=== PATIENT | female | born 1945 | race Caucasian/White ===

== ENCOUNTER 2016-12-28 11:24 | Day surgery (SDC) | payer MEDICARE, MEDICAID ==
[~2016-12-28] VITALS: Ht 165.1 cm; Wt 68.0 kg
[~2016-12-28 11:24] MED LIST: CLOPIDOGREL PO; GLIPERIDE PO; LOSA100T6 PO; OXYC-302 PO
[2016-12-28] MEDS ORDERED: SUPPLEMENTS (12:14)
[2016-12-28] MEDS ORDERED: OXYC-229 PO (12:14)
[2016-12-28] MEDS ORDERED: LOSA50TA6 PO (12:14)
[2016-12-28] MEDS ORDERED: DULO60CA7 PO (12:14)
[2016-12-28] MEDS ORDERED: GLIP5TAB10 PO (12:14)
[2016-12-28] MEDS ORDERED: CLOPIDOGREL (12:14)
[2016-12-28 12:15] VITALS: BP 153/77
[2016-12-28] MEDS ORDERED: SODIUM CHLORIDE 0.9% 1,000 ML IV SCH (12:20)
[2016-12-28 12:51] LABS: HEMOGLOBIN 12.4 g/dL (11.7-16.4)
[2016-12-28 13:00] LABS: BLOOD UREA NITROGEN 43 mg/dL (7-18)
[2016-12-28] MEDS ORDERED: LIDOCAINE 2%, 20ML ONE (13:11)
[2016-12-28] MEDS ORDERED: FLUMAZENIL 0.1 MG/1 ML, 5ML ONE (13:12)
[2016-12-28] MEDS ORDERED: FENTANYL PF 100 MCG/2ML ONE (13:12)
[2016-12-28] MEDS ORDERED: MIDAZOLAM 1 MG/ML, 5ML ONE (13:12)
[2016-12-28] MEDS ORDERED: NALOXONE 1 MG/ML, 2ML ONE (13:12)
[2016-12-28] MEDS ORDERED: HEPARIN 1,000 UNITS/ML, 10ML ONE (13:12)
== END 2016-12-28 15:15 | disposition home or self-care (01) ==
LOC: OUT 11:24
PROVIDERS: ATTEND Surgery Vascular Surgery
DX: T82.898A Other specified complication of vascular prosthetic devices, implants and grafts, initial encounter (principal); E11.22 Type 2 diabetes mellitus with diabetic chronic kidney disease; I12.0 Hypertensive chronic kidney disease with stage 5 chronic kidney disease or end stage renal disease; N18.6 End stage renal disease; Z99.2 Dependence on renal dialysis; F17.210 Nicotine dependence, cigarettes, uncomplicated; E78.5 Hyperlipidemia, unspecified; Z90.710 Acquired absence of both cervix and uterus; Z82.3 Family history of stroke; Z83.3 Family history of diabetes mellitus; Y83.2 Surgical operation with anastomosis, bypass or graft as the cause of abnormal reaction of the patient, or of later complication, without mention of misadventure at the time of the procedure
CPT/HCPCS: 36415; 36901; 80048; 82962; 85025; C1751; C1769; C1894; J2250; J3010; J3490; J7030; 99156; 99157; J1644; J2310

== ENCOUNTER 2020-01-22 22:11 | Inpatient (IN) | payer MEDICARE, MEDICAID ==
[~2020-01-22] VITALS: Ht 165.1 cm; Wt 64.9 kg
[~2020-01-22 22:11] MED LIST changes: +CLOPIDOGREL; +DULO60CA7 PO; +GLIP5TAB10 PO; +LOSA100T14 PO; -LOSA100T6 PO; +LOSA50TA14 PO; +OXYC-307 PO; +SUPPLEMENTS
[2020-01-22 23:01] LABS: ALBUMIN 2.9 g/dL (3.4-5.0); ANION GAP 18 mmol/L (5-15); CALCIUM 9.6 mg/dL (8.5-10.1); CHLORIDE 102 mmol/L (98-107)
--- NOTE | 2020-01-22 23:11 | NUR ---
Patient BIB [facility] from [facility]. Patient was seen for weakness and failure to thrive. Patient receives dialysis but has not been in a week. Patient was afraid to go out of the house due to COVID. Patient had multiple abnormal lab values and was sent here for further advanced care.
[2020-01-22] MEDS ORDERED: FUROSEMIDE 40 MG/4 ML IV ONE (23:30)
[2020-01-22] MEDS ORDERED: DEXTROSE 10%, 1,000ML IV ONE (23:30)
[2020-01-22] MEDS ORDERED: DEXTROSE 10% 1,000 ML IV SCH ×3 (23:30→23:45)
[2020-01-22] MEDS ORDERED: FUROSEMIDE 40 MG/4 ML ONE (23:50)
[2020-01-23] VITALS (7 sets, daily range): BP systolic 92–162; BP diastolic 43–87
[2020-01-23] MEDS ORDERED: ASPI-496 PO (00:17)
[2020-01-23] MEDS ORDERED: BUSP5TAB2 PO (00:17)
[2020-01-23] MEDS ORDERED: ATOR10TA9 PO (00:17)
[2020-01-23] MEDS ORDERED: GLIM1TAB7 PO (00:17)
[2020-01-23] MEDS ORDERED: CLON0.1T22 PO (00:17)
[2020-01-23] MEDS ORDERED: FURO20TA3 PO (00:17)
[2020-01-23] MEDS ORDERED: AMLO2.5T5 PO (00:17)
[2020-01-23] MEDS ORDERED: METO25TA35 PO (00:17)
[2020-01-23] MEDS ORDERED: CLOP75TA PO (00:17)
--- NOTE | 2020-01-23 00:20 | NUR ---
Report given to DAWNA Agosto. Patient to be transferred to room 406.
[2020-01-23] MEDS ORDERED: POLYETHYLENE GLYCOL 17 GM PACKET PO PRN (00:30)
[2020-01-23] MEDS: DEXTROSE 10% 1,000 ML IV SCH ×2 (00:30→17:25)
[2020-01-23] MEDS ORDERED: BISACODYL 10 MG SUPP PR PRN (00:30)
[2020-01-23 00:54] LABS: TROPONIN I 0.029 ng/mL (0.000-0.045)
[2020-01-23] MEDS: HEPARIN 5,000 UNITS/ML, 1ML SQ SCH ×3 (01:20→16:37)
[2020-01-23] MEDS: SODIUM CHLORIDE FLUSH 10ML SYR IVF SCH ×4 (01:26→20:56)
[2020-01-23] MEDS ORDERED: DEXTROSE 50%, 50ML SYRINGE IVPush PRN (01:30)
[2020-01-23] MEDS ORDERED: GLUCAGON 1 MG IM PRN (01:30)
[2020-01-23] MEDS ORDERED: DEXTROSE 4 GM TAB.CHEW PO PRN (01:30)
[2020-01-23] MEDS ORDERED: ACETAMINOPHEN 325 MG TABLET ONE (03:21)
[2020-01-23] MEDS: ACETAMINOPHEN 325 MG TABLET PO PRN ×3 (03:24→20:56)
[2020-01-23 06:36] LABS: TROPONIN I 0.026 ng/mL (0.000-0.045)
[2020-01-23] MEDS: ASPIRIN 81 MG TABLET EC PO SCH (08:02)
[2020-01-23] MEDS: BUSPIRONE 5 MG TABLET PO SCH ×2 (08:03→20:56)
[2020-01-23] MEDS: CLOPIDOGREL 75 MG TABLET PO SCH (08:03)
[2020-01-23] MEDS: SENNA/DOCUSATE TABLET PO SCH (08:03)
[2020-01-23] MEDS: AMLODIPINE 2.5 MG TABLET PO SCH (09:00)
[2020-01-23] MEDS: LOSARTAN 50MG TABLET PO SCH (09:00)
[2020-01-23 09:10] LABS: ANION GAP 18 mmol/L (5-15); CHLORIDE 101 mmol/L (98-107)
[2020-01-23 09:11] LABS: MEAN CORPUSCULAR HEMOGLOBIN 29.1 pg (27.0-34.8); MEAN CORPUSCULAR HGB CONC 32.1 g/dL (32.4-35.8); MEAN CORPUSCULAR VOLUME 90.7 fL (80-100); MEAN PLATELET VOLUME 7.9 fL (7.4-10.4); PLATELET COUNT 342 x10^3/uL (130-400); RED CELL DISTRIBUTION WIDTH 17.4 % (9.6-15.2)
[2020-01-23 09:38] LABS: BASOPHILS # (AUTO) 0.05 x10^3/uL (0-0.1); BASOPHILS % (AUTO) 1 % (0-1); EOSINOPHILS % (AUTO) 4 % (1-7); LYMPHOCYTES # (AUTO) 0.94 x10^3/uL (1-3.4); LYMPHOCYTES % (AUTO) 12 % (22-44); MD SCAN; MONOCYTES # (AUTO) 0.34 x10^3/uL (0.2-0.8); MONOCYTES % (AUTO) 5 % (2-9); NEUTROPHILS # (AUTO) 5.99 x10^3/uL (1.8-6.8); NEUTROPHILS % (AUTO) 79 % (42-75)
[2020-01-23] MEDS: NICOTINE 21 MG/24 HR PATCH.TD24 TD SCH (10:35)
[2020-01-23] MEDS: ONDANSETRON 2MG/ML, 2ML IVPush PRN (11:08)
[2020-01-23] MEDS ORDERED: DARBEPOETIN 100 MCG/ML SQ SCH (12:00)
[2020-01-23 12:55] LABS: ABSOLUTE RETICS # 0.029 x10^6/uL (0.5-2.5); RETICULOCYTE COUNT % 1.32 % (0.5-1.5)
[2020-01-23 13:00] LABS: RED BLOOD COUNT 2.16 x10^6/uL (3.82-5.3)
[2020-01-23 13:04] LABS: % IRON SATURATION 36 % (20-55); IRON LEVEL 44 mcg/dL (50-170); TOTAL IRON BINDING CAPACITY 121 mcg/dL (250-450)
[2020-01-23 13:08] LABS: TROPONIN I 0.038 ng/mL (0.000-0.045)
[2020-01-23] MEDS ORDERED: MORPHINE SULFATE 4 MG/ML, 1ML ONE (16:54)
[2020-01-23] MEDS ORDERED: morphine SULFATE 10 MG/ML, 1ML IVPush ONE (17:00)
[2020-01-23] MEDS ORDERED: MORPHINE SULFATE 4 MG/ML, 1ML IVPush ONE (17:00)
[2020-01-23 18:33] LABS: TROPONIN I 0.052 ng/mL (0.000-0.045)
[2020-01-23] MEDS: ATORVASTATIN 40 MG TABLET PO SCH (20:56)
[2020-01-24] MEDS: HEPARIN 5,000 UNITS/ML, 1ML SQ SCH ×4 (00:13→19:30)
[2020-01-24 00:56] VITALS: BP 103/67
[2020-01-24] MEDS: ONDANSETRON 2MG/ML, 2ML IVPush PRN (03:05)
[2020-01-24 05:45] LABS: ALBUMIN 2.6 g/dL (3.4-5.0); ANION GAP 11 mmol/L (5-15); CALCIUM 8.5 mg/dL (8.5-10.1); CHLORIDE 94 mmol/L (98-107); CREATININE 6.06 mg/dL (0.55-1.02)
[2020-01-24 05:53] LABS: MEAN CORPUSCULAR HEMOGLOBIN 29.8 pg (27.0-34.8); MEAN CORPUSCULAR HGB CONC 33.3 g/dL (32.4-35.8); MEAN CORPUSCULAR VOLUME 89.6 fL (80-100); MEAN PLATELET VOLUME 7.6 fL (7.4-10.4); PLATELET COUNT 300 x10^3/uL (130-400); RED BLOOD COUNT 2.45 x10^6/uL (3.82-5.3)
[2020-01-24 06:43] LABS: BASOPHILS # (AUTO) 0.02 x10^3/uL (0-0.1); BASOPHILS % (AUTO) 0 % (0-1); EOSINOPHILS # (AUTO) 0.09 x10^3/uL (0-0.4); EOSINOPHILS % (AUTO) 2 % (1-7); LYMPHOCYTES # (AUTO) 0.55 x10^3/uL (1-3.4); LYMPHOCYTES % (AUTO) 10 % (22-44); MD SCAN; MONOCYTES # (AUTO) 0.45 x10^3/uL (0.2-0.8); MONOCYTES % (AUTO) 8 % (2-9); NEUTROPHILS # (AUTO) 4.57 x10^3/uL (1.8-6.8); NEUTROPHILS % (AUTO) 80 % (42-75)
[2020-01-24 07:32] VITALS: BP 112/69
[2020-01-24] MEDS: CLOPIDOGREL 75 MG TABLET PO SCH (09:00)
[2020-01-24] MEDS: SENNA/DOCUSATE TABLET PO SCH (09:00)
[2020-01-24] MEDS: AMLODIPINE 2.5 MG TABLET PO SCH (09:00)
[2020-01-24] MEDS ORDERED: FUROSEMIDE 40 MG/4 ML IV ONE (09:00)
[2020-01-24] MEDS: SODIUM CHLORIDE FLUSH 10ML SYR IVF SCH ×4 (09:00→20:44)
[2020-01-24] MEDS: ASPIRIN 81 MG TABLET EC PO SCH (09:00)
[2020-01-24] MEDS: LOSARTAN 50MG TABLET PO SCH (09:00)
[2020-01-24] MEDS ORDERED: REGADENOSON 0.4 MG/5 ML SYRINGE ONE (09:50)
[2020-01-24] MEDS: NICOTINE 21 MG/24 HR PATCH.TD24 TD SCH (12:01)
[2020-01-24] MEDS: IRON SUCROSE COMPLEX 100MG/5ML IV SCH (12:01)
[2020-01-24] MEDS: BUSPIRONE 5 MG TABLET PO SCH ×2 (12:01→20:44)
[2020-01-24 13:36] VITALS: BP 114/66
[2020-01-24 19:48] VITALS: BP 107/65
[2020-01-24] MEDS: INSULIN LISPRO 100 UNITS/ML, PEN SQ-INSULIN SCH (20:38)
[2020-01-24] MEDS: ATORVASTATIN 40 MG TABLET PO SCH (20:44)
[2020-01-24] MEDS: DIPHENHYDRAMINE 25 MG CAPSULE PO PRN (23:37)
[2020-01-24] MEDS: ACETAMINOPHEN 325 MG TABLET PO PRN (23:37)
[2020-01-25 00:46] VITALS: BP 101/62
[2020-01-25 05:39] LABS: MEAN CORPUSCULAR HEMOGLOBIN 29.6 pg (27.0-34.8); MEAN CORPUSCULAR HGB CONC 32.7 g/dL (32.4-35.8); MEAN CORPUSCULAR VOLUME 90.5 fL (80-100); MEAN PLATELET VOLUME 7.6 fL (7.4-10.4); PLATELET COUNT 310 x10^3/uL (130-400); RED BLOOD COUNT 2.49 x10^6/uL (3.82-5.3); RED CELL DISTRIBUTION WIDTH 17.5 % (9.6-15.2)
[2020-01-25 05:51] LABS: ALBUMIN 2.8 g/dL (3.4-5.0); ANION GAP 9 mmol/L (5-15); CALCIUM 8.8 mg/dL (8.5-10.1); CHLORIDE 94 mmol/L (98-107)
[2020-01-25 05:57] LABS: BASOPHILS # (AUTO) 0.02 x10^3/uL (0-0.1); BASOPHILS % (AUTO) 0 % (0-1); EOSINOPHILS # (AUTO) 0.17 x10^3/uL (0-0.4); EOSINOPHILS % (AUTO) 3 % (1-7); LYMPHOCYTES # (AUTO) 1.19 x10^3/uL (1-3.4); LYMPHOCYTES % (AUTO) 19 % (22-44); MD SCAN; MONOCYTES # (AUTO) 0.55 x10^3/uL (0.2-0.8); MONOCYTES % (AUTO) 9 % (2-9); NEUTROPHILS # (AUTO) 4.18 x10^3/uL (1.8-6.8); NEUTROPHILS % (AUTO) 68 % (42-75)
[2020-01-25] MEDS: INSULIN LISPRO 100 UNITS/ML, PEN SQ-INSULIN SCH ×4 (07:00→21:00)
[2020-01-25] MEDS: CLOPIDOGREL 75 MG TABLET PO SCH (07:02)
[2020-01-25] MEDS: HEPARIN 5,000 UNITS/ML, 1ML SQ SCH ×2 (07:02→16:50)
[2020-01-25] MEDS: ASPIRIN 81 MG TABLET EC PO SCH (07:02)
[2020-01-25 07:26] VITALS: BP 108/64
[2020-01-25] MEDS: SODIUM CHLORIDE FLUSH 10ML SYR IVF SCH ×3 (07:34→20:59)
[2020-01-25] MEDS: BUSPIRONE 5 MG TABLET PO SCH ×2 (08:33→20:59)
[2020-01-25] MEDS: CALCITRIOL 0.25 MCG CAPSULE PO SCH (08:33)
[2020-01-25] MEDS: LOSARTAN 50MG TABLET PO SCH (08:33)
[2020-01-25] MEDS: SENNA/DOCUSATE TABLET PO SCH (08:33)
[2020-01-25] MEDS: NICOTINE 21 MG/24 HR PATCH.TD24 TD SCH (09:19)
[2020-01-25] MEDS: IRON SUCROSE COMPLEX 100MG/5ML IV SCH (13:16)
[2020-01-25 14:03] LABS: OCCULT BLOOD POSITIVE (NEGATIVE)
[2020-01-25 14:05] VITALS: BP 118/66
[2020-01-25 19:43] VITALS: BP 111/68
[2020-01-25] MEDS: ATORVASTATIN 40 MG TABLET PO SCH (20:59)
[2020-01-25] MEDS: DIPHENHYDRAMINE 25 MG CAPSULE PO PRN (20:59)
[2020-01-26 00:08] VITALS: BP 123/67
[2020-01-26] MEDS: HEPARIN 5,000 UNITS/ML, 1ML SQ SCH ×3 (00:45→17:12)
[2020-01-26 05:49] LABS: BASOPHILS # (AUTO) 0.02 x10^3/uL (0-0.1); BASOPHILS % (AUTO) 0 % (0-1); EOSINOPHILS # (AUTO) 0.21 x10^3/uL (0-0.4); EOSINOPHILS % (AUTO) 3 % (1-7); LYMPHOCYTES # (AUTO) 1.19 x10^3/uL (1-3.4); LYMPHOCYTES % (AUTO) 19 % (22-44); MD NO; MEAN CORPUSCULAR HEMOGLOBIN 29.8 pg (27.0-34.8); MEAN CORPUSCULAR HGB CONC 32.8 g/dL (32.4-35.8); MEAN CORPUSCULAR VOLUME 90.9 fL (80-100); MEAN PLATELET VOLUME 7.6 fL (7.4-10.4); MONOCYTES # (AUTO) 0.52 x10^3/uL (0.2-0.8); MONOCYTES % (AUTO) 8 % (2-9); NEUTROPHILS # (AUTO) 4.42 x10^3/uL (1.8-6.8); NEUTROPHILS % (AUTO) 70 % (42-75); PLATELET COUNT 319 x10^3/uL (130-400); RED BLOOD COUNT 2.56 x10^6/uL (3.82-5.3); RED CELL DISTRIBUTION WIDTH 17.5 % (9.6-15.2)
[2020-01-26 05:55] LABS: ALBUMIN 2.8 g/dL (3.4-5.0); ANION GAP 8 mmol/L (5-15); CALCIUM 9.2 mg/dL (8.5-10.1); CHLORIDE 102 mmol/L (98-107); CREATININE 3.51 mg/dL (0.55-1.02)
[2020-01-26 07:30] VITALS: BP 122/67
[2020-01-26] MEDS: PANTOPRAZOLE 40 MG IV IVPush SCH (07:41)
[2020-01-26] MEDS: SENNA/DOCUSATE TABLET PO SCH (07:41)
[2020-01-26] MEDS: INSULIN LISPRO 100 UNITS/ML, PEN SQ-INSULIN SCH ×4 (07:41→21:05)
[2020-01-26] MEDS: CALCITRIOL 0.25 MCG CAPSULE PO SCH (07:41)
[2020-01-26] MEDS: BUSPIRONE 5 MG TABLET PO SCH ×2 (07:41→21:03)
[2020-01-26] MEDS: CLOPIDOGREL 75 MG TABLET PO SCH (07:42)
[2020-01-26] MEDS: LOSARTAN 50MG TABLET PO SCH (07:42)
[2020-01-26] MEDS: SODIUM CHLORIDE FLUSH 10ML SYR IVF SCH ×2 (07:42→21:03)
[2020-01-26] MEDS: ASPIRIN 81 MG TABLET EC PO SCH (07:42)
[2020-01-26] MEDS: NICOTINE 21 MG/24 HR PATCH.TD24 TD SCH (09:36)
[2020-01-26 12:28] VITALS: BP 108/62
[2020-01-26] MEDS: IRON SUCROSE COMPLEX 100MG/5ML IV SCH (12:39)
[2020-01-26 18:42] VITALS: BP 114/65
[2020-01-26] MEDS: ATORVASTATIN 40 MG TABLET PO SCH (21:03)
[2020-01-27] MEDS: HEPARIN 5,000 UNITS/ML, 1ML SQ SCH ×2 (00:30→07:00)
[2020-01-27 01:25] VITALS: BP 124/68
[2020-01-27 05:17] LABS: ALBUMIN 2.9 g/dL (3.4-5.0); ANION GAP 10 mmol/L (5-15); BASOPHILS # (AUTO) 0.02 x10^3/uL (0-0.1); BASOPHILS % (AUTO) 0 % (0-1); CHLORIDE 99 mmol/L (98-107); EOSINOPHILS # (AUTO) 0.37 x10^3/uL (0-0.4); EOSINOPHILS % (AUTO) 5 % (1-7); LYMPHOCYTES # (AUTO) 1.05 x10^3/uL (1-3.4); LYMPHOCYTES % (AUTO) 13 % (22-44); MD NO; MEAN CORPUSCULAR HEMOGLOBIN 29.7 pg (27.0-34.8); MEAN CORPUSCULAR HGB CONC 32.4 g/dL (32.4-35.8); MEAN CORPUSCULAR VOLUME 91.9 fL (80-100); MEAN PLATELET VOLUME 7.3 fL (7.4-10.4); MONOCYTES # (AUTO) 0.56 x10^3/uL (0.2-0.8); MONOCYTES % (AUTO) 7 % (2-9); NEUTROPHILS # (AUTO) 6.12 x10^3/uL (1.8-6.8); NEUTROPHILS % (AUTO) 75 % (42-75); PLATELET COUNT 338 x10^3/uL (130-400); RED BLOOD COUNT 2.66 x10^6/uL (3.82-5.3); RED CELL DISTRIBUTION WIDTH 17.5 % (9.6-15.2)
[2020-01-27 05:20] LABS: ALANINE AMINOTRANSFERASE 8 U/L (12-78); ALKALINE PHOSPHATASE 85 U/L (45-117); BILIRUBIN,TOTAL 0.4 mg/dL (0.2-1.0); CREATININE 3.42 mg/dL (0.55-1.02); TOTAL PROTEIN 6.8 g/dL (6.4-8.2)
[2020-01-27 06:56] VITALS: BP 123/69
[2020-01-27] MEDS: INSULIN LISPRO 100 UNITS/ML, PEN SQ-INSULIN SCH (07:00)
[2020-01-27] MEDS: PANTOPRAZOLE 40 MG IV IVPush SCH (08:32)
[2020-01-27] MEDS: LOSARTAN 50MG TABLET PO SCH (08:32)
[2020-01-27] MEDS: CLOPIDOGREL 75 MG TABLET PO SCH (08:32)
[2020-01-27] MEDS: BUSPIRONE 5 MG TABLET PO SCH (08:33)
[2020-01-27] MEDS: SODIUM CHLORIDE FLUSH 10ML SYR IVF SCH (08:33)
[2020-01-27] MEDS: ASPIRIN 81 MG TABLET EC PO SCH (08:33)
[2020-01-27] MEDS: CALCITRIOL 0.25 MCG CAPSULE PO SCH (08:33)
[2020-01-27] MEDS: SENNA/DOCUSATE TABLET PO SCH (08:34)
== END 2020-01-27 10:49 | disposition home or self-care (01) | DRG 682 ==
LOC: ED 01-23 00:07 → EDIP 01-23 00:21 → 4WST 01-23 00:30
PROVIDERS: ADMIT Family Medicine; ATTEND Family Medicine
PROC: 5A1D70Z Performance of Urinary Filtration, Intermittent, Less than 6 Hours Per Day (ICD-10-PCS; principal; 2020-01-23)
PROC: 5A1D70Z Performance of Urinary Filtration, Intermittent, Less than 6 Hours Per Day (ICD-10-PCS; 2020-01-24)
PROC: 5A1D70Z Performance of Urinary Filtration, Intermittent, Less than 6 Hours Per Day (ICD-10-PCS; 2020-01-24)
DX: N17.9 Acute kidney failure, unspecified (principal); E43 Unspecified severe protein-calorie malnutrition; I13.2 Hypertensive heart and chronic kidney disease with heart failure and with stage 5 chronic kidney disease, or end stage renal disease; E87.2 Acidosis; I50.30 Unspecified diastolic (congestive) heart failure; N18.6 End stage renal disease; D63.1 Anemia in chronic kidney disease; E03.9 Hypothyroidism, unspecified; E11.22 Type 2 diabetes mellitus with diabetic chronic kidney disease; E11.51 Type 2 diabetes mellitus with diabetic peripheral angiopathy without gangrene; E11.649 Type 2 diabetes mellitus with hypoglycemia without coma; E78.00 Pure hypercholesterolemia, unspecified; E87.5 Hyperkalemia; I27.20 Pulmonary hypertension, unspecified; I44.7 Left bundle-branch block, unspecified; I48.0 Paroxysmal atrial fibrillation; N25.0 Renal osteodystrophy; R62.7 Adult failure to thrive; Z90.710 Acquired absence of both cervix and uterus; Z91.14 Patient's other noncompliance with medication regimen; Z99.2 Dependence on renal dialysis; Z79.82 Long term (current) use of aspirin; Z79.899 Other long term (current) drug therapy; Z90.89 Acquired absence of other organs; F17.210 Nicotine dependence, cigarettes, uncomplicated; W18.39XA Other fall on same level, initial encounter; Y93.89 Activity, other specified; Y92.098 Other place in other non-institutional residence as the place of occurrence of the external cause; Y99.8 Other external cause status; Z79.84 Long term (current) use of oral hypoglycemic drugs
CPT/HCPCS: 36415; 71045; 78452; 80048; 80053; 80069; 82040; 82272; 82306; 82310; 82728; 82962; 83036; 83540; 83550; 83735; 83970; 84100; 84443; 84484; 84550; 85014; 85018; 85025; 85045; 86705; 86706; 87340; 90935; 93005; 93017; 93306; 96374; G0378; J0881; J1644; J1756; J1940; J2405; J2785; A9502; C9113; J1815; J2270; Q0163